=== PATIENT | female | born 1965 | race Caucasian/White ===

== ENCOUNTER 2016-10-28 11:12 | Emergency (ER) | payer OTHER ==
--- NOTE | 2016-10-28 14:09 | DIAGNOSTIC IMAGING REPORT ---
PROCEDURE: ABDOMEN/PELVIS WITH CONTRAST CLINICAL INDICATION: ABDOMINAL PAIN mid abdominal pain, nausea, diarrhea TECHNIQUE: 125 ml of Isovue 300 were injected intravenously and axial images were obtained of the abdomen and pelvis with sagittal and coronal reformations. COMPARISON: None. FINDINGS: ABDOMEN: 9 x 6 by 5 mm calcification in the right renal pelvis with mild parapelvic hyperemia and trace inflammation. Small bilateral renal cortical cysts. No hydronephrosis or other definite intrarenal calcification. Mild enlargement of the pancreatic head without ductal dilatation or significant peripancreatic inflammation. Intact breast implants. Clear lung bases. Normal sized heart. No hiatal hernia. The liver, decompressed gallbladder, adrenal glands, pancreas and spleen are normal. The abdominal aorta is normal in its course and caliber. Trace calcific atherosclerosis. No retroperitoneal adenopathy, suspicious calcifications, or masses. The stomach, upper bowel loops, and mesentery are normal. Intact anterior abdominal wall. No free fluid or inflammation. PELVIS: The appendix and pelvic small bowel loops are normal. Decreased amount of stool in the colon and rectum. Occasional diverticula. No acute diverticulitis. The uterus, ovaries, urinary bladder, and pelvic vessels are normal. No adenopathy, free fluid, or pelvic mass. Mild facet joint degeneration. IMPRESSION: 1. A 9 x 6 x 5 mm right renal pelvis calcification without obstruction. There is mild surrounding inflammation. Correlate with UA. 2. Mild enlargement of the pancreatic head without discrete mass, ductal dilatation, or inflammation. Consider occult pancreatitis. 3. Fairly decompressed colon secondary history of recent diarrhea. No significant pericolonic inflammation. 4. Discussed with Dr. Malone in the emergency room. All CT scans at this facility use dose modulation, iterative reconstruction, and/or weight-based dosing when appropriate to reduce radiation dose to as low as reasonably achievable.
--- NOTE | 2016-10-28 14:38 | ED ORDER SUMMARY ---
..... Patient: CHRISTINA REED OrderSheet [facility] VisitID: [id number] [place] [address] 50y, F Registration Date/Time: 10/28/2016 ORDER SHEET Weight: 65.3 kg (stated) Allergies: No Known Drug Allergy GENERAL ORDERS: UA-Culture if indicated Urgent (11:49 10/28/2016 MWinterer R.N. per protocol) (Ack 11:50 Vivian) (11:51 MWinterer R.N.) Urine Urgent (11:49 10/28/2016 MWinterer R.N. per protocol) (Ack 11:50 Vivian) (11:51 MWinterer R.N.) Cardiac Panel Stat (12:18 10/28/2016 Cedric BLAIR) (Ack 12:19 Vivian) (12:57 MWinterer R.N.) TSH Urgent (12:10/28/2016 Cedric BLAIR) (Ack 12:19 Vivian) (12:57 MWinterer R.N.) Urine Drug Screen Urgent (12:18 10/28/2016 Cedric BLAIR) (Ack 12:19 Vivian) (12:24 MWinterer R.N.) Culture, Stool (also c-diff and parasites including giardia.) Urgent (12:18 10/28/2016 Cedric BLAIR) (Ack 12:20 Vivian) (12:57 MWinterer R.N.) - (stool for leukocytes.) (12:10/28/2016 Cedric BLAIR) (Ack 12:25 Vivian) (12:57 MWinterer R.N.) CT Abd/Pel w Cont (No) (pending) Urgent (12:10/28/2016 Cedric BLAIR) (Ack 12:21 Vivian) (13:39 IJurca R.N.) Amylase Urgent (14:03 10/28/2016 Cedric BLAIR) (Ack 14:04 Vivian) (14:10 ALawrence ER Tech1) Lipase Urgent (14:03 10/28/2016 Cedric BLAIR) (Ack 14:04 Vivian) (14:10 ALawrence ER Tech1) CRP Urgent (14:27 10/28/2016 Cedric BLAIR) (Ack 14:38 Vivian) (14:38 Vivian) MEDICATION ORDERS: IV FLUIDS: IV NS : initial bolus 1000 mL (1000 mL/hr), then 125 mL/hr for 4h (NOW); Routine (12:17 10/28/2016 Cedric BLAIR) (Ack 12:21 MWinterer R.N.) (12:58 IJurca R.N.) Zofran IV 4 mg (NOW) (12:18 10/28/2016 Cedric BLAIR) (Ack 12:22 MWinterer R.N.) (12:56 IJurca R.N.) ORDER SHEET NOTES: [Electronically signed by Mara Mckenzie R.N. (14:55 10/28/2016)] [Electronically signed by Alex Malone MD (22:16 10/31/2016)] [Electronically locked/signed by Mara Mckenzie R.N. (14:55 10/28/2016)]
--- NOTE | 2016-10-28 14:38 | ED CLINICAL REPORT ---
Clinical Report - Physicians/Mid Levels [facility] [address] [place] [address] 10/28/2016 11:14 Patient: CHRISTINA REED Time Seen: 12:06 Oct 28 2016. Arrived- By private vehicle. Historian- patient. CPT: ER phys charges level 4 (#[id number]). HISTORY OF PRESENT ILLNESS Chief Complaint: VOMITING and DIARRHEA. This started last night Has had chronic diarrhea for the past 2 months. Has not had it looked at yet. Last night was a spell of pain and diarrhea that was worse than usual. No blood noted but had a lot of abdominal pain and cramping. Had a colonoscopy 6 months ago that was normal but did not have these symptoms at the time. No F/S/C. No hx of UC or crohns in her or family. and is still present. The patient has had nausea and diarrhea. The illness is described as moderate. (Stool is black but she has been taking peptobismol.). Similar symptoms previously: Chronically. Recent medical care: Not recently seen/assessed. REVIEW OF SYSTEMS No fever, muscle aches, difficulty with urination, dark urine or headache. No dizziness, sore throat, cough, chest pain or difficulty breathing. No excessive urination or jaundice. All systems otherwise negative, except as recorded above. PAST HISTORY Plantar Fasciitis. Hypertension. Nephrolithiasis. ADDITIONAL SURGERIES: Lithotripsy. No history of peptic ulcer. No history of bowel obstruction or gallstones. Medications: None. Allergies: No Known Drug Allergy. SOCIAL HISTORY Never smoker. Alcohol use. History of drug use: marijuana. ADDITIONAL NOTES The nursing notes have been reviewed. PHYSICAL EXAM Vital Signs: 10/28/2016 11:29 BP: 151/78. HR: 109. RR: 18. O2 saturation: 100%. Temp: 97.9 F. Pain level now: 6/10. Appearance: Alert. No acute distress. Eyes: Eyes normal inspection. ENT: Pharynx normal. Neck: Normal inspection. CVS: Normal heart rate and rhythm. Heart sounds normal. Pulses normal. Respiratory: No respiratory distress. Breath sounds normal. Abdomen: Soft. Moderate tenderness in the right side of the abdomen and periumbilical area. Bowel sounds normal. No mass. Back: Normal inspection. No CVA tenderness. Rectal: Rectal exam normal and nontender. Stool heme negative; hemoccult quality assurance technician check passed. (POC test reference range: negative). Skin: Skin warm. Normal skin color. No rash. Extremities: Extremities exhibit normal ROM. No lower extremity edema. Neuro: Oriented X 3. No motor deficit. No sensory deficit. LABS, X-RAYS, AND EKG Abdominal CT: subtle , mildly enlarged pancreatic head. No inflammation. 9 by 6 by 5 renal pelvic stone. No hydronephrosis. Mild hyperemia. Abdominal CT performed with IV contrast. The study was interpreted by the radiologist and discussed with the radiologist. Laboratory Tests: UA-Culture if indicated: (SEVEN: 10/28/2016 11:45) ( [facility] [place] 12:17) Final results Test Result Flag Units (Reference) URINE COLOR YELLOW URINE APPEARANCE CLEAR URINE GLUCOSE NEGATIVE (NEGATIVE) URINE BILIRUBIN NEGATIVE (NEGATIVE) URINE KETONE NEGATIVE (NEGATIVE) URINE SPECIFIC GRAVITY 1.025 (1.010-1.030) URINE PH 6.0 (5.0-8.0) URINE PROTEIN NEGATIVE (NEGATIVE) URINE UROBILINOGEN 0.2 EU/dL (0.2-1.0) URINE NITRITE NEGATIVE (NEGATIVE) URINE BLOOD TRACE-INTACT (NEGATIVE) URINE LEUK ESTERASE NEGATIVE (NEGATIVE) URINE RBC 0-1 rbc/hpf (0-1) URINE WBC 3-5 wbc/hpf (0-1) URINE EPITHELIAL CELLS 3-5 EPI/hpf (0-5) URINE BACTERIA TRACE (<1+) (NONE SEEN) URINE COMMENT CULT NOT INDICATED 2+ [id number] CALCIUM OXALATE CRYSTALS/HPFURINE CULTURES ARE SET-UP BASED ON THE FOLLOWING CRITERIA:POSITIVE NITRITEPOSITIVE LEUKOCYTE ESTERASEGREATER THAN 10 WHITE BLOOD CELLSMODERATE (2+) OR GREATER BACTERIA Urine: (SEVEN: 10/28/2016 11:45) ( [facility] [place] 12:00) Final results Test Result Flag Units (Reference) URINE NEGATIVE CBC w Diff: (SEVEN: 10/28/2016 12:54) ( MsgRcvd 10/28/2016 13:05) Final results Test Result Flag Units (Reference) WHITE BLOOD COUNT 7.8 K/uL (4.5-11.5) RED BLOOD COUNT 4.90 M/uL (4.00-5.20) HEMOGLOBIN 14.9 gm/dL (12.0-16.0) HEMATOCRIT 43.3 % (36.0-46.0) MEAN CELL VOLUME 88 fL (80-100) MEAN CORPUSCULAR HGB 30 pg (26-34) MEAN CORPUSCULAR HGB CONC 34 g/dL (31-37) RED CELL DISTRIBUTION WIDTH 12.5 % (11.6-14.8) PLATELET COUNT 386 K/uL (150-400) NEUTROPHIL % 70.1 % (50-75) LYMPH % 21.4 L % (25-40) MONO % 6.6 % (3-14) EOSINOPHIL % 1.6 % (0-4) BASOPHIL % 0.3 % (0-2) Urine Drug Screen: (SEVEN: 10/28/2016 12:18) ( MsgRcvd 10/28/2016 12:57) Final results Test Result Flag Units (Reference) AMPHETAMINE/METHAMPHETAMINE NEGATIVE (NEGATIVE) BARBITURATE NEGATIVE (NEGATIVE) BENZODIAZEPINE NEGATIVE (NEGATIVE) CANNABINOID NEGATIVE (NEGATIVE) COCAINE NEGATIVE (NEGATIVE) ECSTASY NEGATIVE (NEGATIVE) METHADONE NEGATIVE (NEGATIVE) OPIATE NEGATIVE (NEGATIVE) The urine drug screen is a qualitative screening test fordrug overdose and abuse. All screen results should beconsidered as presumptive.Drugs screened for are as follows:BenzodiazepinesCocaineAmphetamines/MetamphetaminesTHC (Tetrahydrocannabinol)OpiatesBarbituratesEcstasyMethadonePositive results are unconfirmed. For confirmation, notifythe lab for the specimen to be sent to the reference lab.All confirmations must be performed by a differentmethodology.The ingestion of natural herbal and plant productscontaining Ephedra/Ephedra metabolites can produce in urineone or more substances capable of cross reacting withamphetamine/methamphetamine immunoassays. These testsprovide a preliminary result only. A more specificalternative chemical method must be used to obtain aconfirmed analytical result. CHEM 13 PANEL: (SEVEN: 10/28/2016 12:54) ( MsgRcvd 10/28/2016 13:29) Final results Test Result Flag Units (Reference) GLUCOSE 104 mg/dL (70-110) BUN 26 H mg/dL (7-18) CREATININE 0.6 mg/dL (0.6-1.3) Estimated GFR >60 mL/min Estimated GFR- >60 mL/min Note: Persistent reduction over 3 months in eGFR<60 mL/min/1.73 m2 defines CKD. Patients with eGFR values>=60 mL/min/1.73 m2 may also have CKD if evidence ofpersistent proteinuria. Additional information may be foundat www.kidney.org. SODIUM 143 mmol/L (136-145) POTASSIUM 3.7 mmol/L (3.5-5.1) CHLORIDE 106 mmol/L (98-107) CARBON DIOXIDE 28 mmol/L (21-32) CALCIUM 8.9 mg/dL (8.5-10.1) TOTAL PROTEIN 7.9 g/dL (6.4-8.2) ALBUMIN 4.3 g/dL (3.3-5.0) BILIRUBIN, TOTAL 0.3 mg/dL (0.0-1.0) ALKALINE PHOSPHATASE 74 U/L (46-116) AST (SGOT) 20 U/L (15-37) ALT (SGPT) 40 U/L (12-78) CPK 134 U/L (24-260) MAGNESIUM 2.1 mg/dL (1.8-2.4) TROPONIN I <0.05 L ng/mL (0.00-1.5) TROPONIN REFERENCE RANGE:<0.1 NEGATIVE0.1-1.5 INDETERMINANT>1.5 POSITIVE THYROID STIMULATING HORMONE 0.519 uIU/mL (0.34-3.74) . PROGRESS AND PROCEDURES Course of Care: IV NS Zofran 4 mg IV Patient is stable. Symptoms much better. Patient/family counseled. Disposition: Discharged. Condition: stable and improved. CLINICAL IMPRESSION Chronic diarrhea of unclear etiology Pancreatic head enlargement Kidney stone. INSTRUCTIONS Drink plenty of fluids. Warnings: Further evaluation is necessary. Prescription Medications: Zofran (orally disintegrating tablets) 4 mg: take 1 orally every 6 hours as needed for nausea. Dispense ten (10). No refill. Bentyl 20 mg tablets: take 1 orally every 6 hours as needed. Dispense thirty (30). No refills. Substitution is permissible. Follow-up: Follow up with your doctor in one week. Call for an appointment. Follow up with a repeat chief in one week. Call for an appointment. Understanding of the discharge instructions verbalized by patient. (Electronically signed by Alex Malone MD 10/31/2016 22:16)
--- NOTE | 2016-10-28 14:38 | ED NURSING NOTES ---
Clinical Report - Nurses [facility] [place] [address] 10/28/2016 11:14 Patient: CHRISTINA REED TRIAGE Acuity: LEVEL 3. Chief Complaint: NAUSEA and DIARRHEA. Alert. No acute distress. SEPSIS SCREEN: Sepsis Screen. Negative (no infection suspected/documented). --11:34 Mara Mckenzie R.N. 11:29 10/28/16. BP: 151/78. HR: 109. RR: 18. O2 saturation: 100% on room air. Temp: 97.9 F (oral). Pain level now: 09/21. --11:34 Mara Mckenzie R.N. Weight: 65.3 kg stated. Height/Length: 62 inches Per Patient. BMI: 26.4. --11:32 Mara Mckenzie R.N. Medications None. --11:30 Mara Mckenzie R.N. Medication/allergy information source: the patient. --11:34 Mara Mckenzie R.N. Allergies No Known Drug Allergy. --11:31 Mara Mckenzie R.N. History Arrived by private vehicle, and unaccompanied. Primary physician (none). This started last night. Describes the quality as cramping. Relates location as generalized across abdomen. Reports last BM was today. Last oral intake by patient was this morning. 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 PAST MEDICAL HX: The patient is post-menopausal. SOCIAL HX: Never smoker. Occasional alcohol use. History of occasional drug use: marijuana. FALL RISK ASSESSMENT: Fall risk assessment completed. No fall risk identified. NUTRITIONAL RISK ASSESSMENT: The nutritional risk assessment revealed no deficiencies. FUNCTIONAL ASSESSMENT: Functional assessment: no impairments noted. LEARNING NEEDS ASSESSMENT: The learning needs assessment revealed no barriers. SKIN INTEGRITY ASSESSMENT: Skin integrity risk assessment completed. No skin integrity risk identified. --11:34 Mara Mckenzie R.N. PROBLEMS: Plantar Fasciitis. Hypertension. Nephrolithiasis. --11:32 Mara Mckenzie R.N. ADDITIONAL SURGERIES: Lithotripsy. --11:32 Mara Mckenzie R.N. Assessment GENERAL / NEURO / PSYCH: Alert. Oriented X 4. Appears in no acute distress. Luz Maria Coma Scale: 15- eyes open spontaneously (4); best verbal response- oriented x 4 (5); best motor response- obeys commands (6). Patient appears calm and cooperative. RESPIRATORY: Respirations not labored. CVS: Capillary refill less than 2 seconds. GI / : Abdomen soft. SKIN: Mucous membranes are pink. Skin is warm and dry. --11:34 Mara Mckenzie R.N. Interventions ID band on patient. To treatment room. --11:34 Mara Mckenzie R.N. PHYSICAL ASSESSMENT 11:35 10/28/16. Ambulatory to room. Patient gowned. GENERAL / NEURO / PSYCH: Alert. Oriented X 4. Appears in no acute distress. HEENT: Mucous membranes are pink. RESPIRATORY: Respirations not labored. CVS: Capillary refill less than 2 seconds. GI / : Abdomen soft and nontender. SKIN: Skin is warm and dry. --11:35 Mara Mckenzie R.N. NURSING PROGRESS NOTES 11:35 10/28/16. Patient gowned. Reassurance given. Two patient identifiers checked. Call light placed in reach. Bed placed in lowest position. Brakes of bed on. Patient ready for evaluation- chart flagged and ED physician notified. --11:35 Mara Mckenzie R.N. 12:46 10/28/2016 Site #1 started via IV in the right wrist with an 20g angiocath, with aseptic technique and good blood return; two attempts. Blood drawn: rainbow set. Labeled in the presence of the patient and sent to the lab. Saline lock flushed with saline. --12:56 Jersey Perez R.N. 12:51 10/28/2016 Zofran (Ondansetron HCl) IVP 4 mg given over 2 minute(s) via site #1. Allergies verified and confirmed 5 rights. IV patency established. IV site checked: no pain, redness, or swelling. IV flushed thoroughly pre- and post-medication administration. IVP given by RN. --12:56 Jersey Perez R.N. 12:51 10/28/2016 Started bag #1 1000 mL IV Fluids IV NS (Saline); bolus of 1000 mL over 1 hour(s) then at 125 mL/hr over 4 hour(s) via site #1 via IV pump. Allergies verified and confirmed 5 rights. IV patency established. IV site checked: no pain, redness, or swelling. IV flushed thoroughly pre- and post-medication administration. --12:58 Jersey Perez R.N. 13:20 10/28/2016 Zofran IVP Response: no adverse reaction symptoms have improved the patient feels better. (Nausea resolved, now absent.). --13:25 Jersey Perez R.N. 13:28 10/28/16. Patient transported to [place] by stretcher with [employer]. --13:28 Mara Mckenzie R.N. 14:35 10/28/16. Global Sales Director provided for the rectal exam by the physician. --14:35 Mara Mckenzie R.N. 14:35 10/28/16. BP: 135/72. HR: 96. RR: 18. O2 saturation: 99% on room air. --14:36 Mara Mckenzie R.N. DISPOSITION / DISCHARGE Departure time: 14:50 Oct 28 2016. Condition at departure: improved and stable. No learning barriers present. Discharge instructions provided and reviewed with the patient. Reviewed medication(s) side effects, precautions, dosing and course information. Prescription(s) given to the patient. Patient verbalized understanding. Written instructions provided in [place]. The patient was discharged by the physician. She was discharged home and accompanied by corporate investigator. She left the Emergency Department ambulatory and via private vehicle. Patient driving. --14:54 Mara Mckenzie R.N. 14:49 10/28/2016 Site #1 removed upon discharge. Catheter intact. Manual pressure and bandage applied. --14:54 Mara Mckenzie R.N. Locked/Released at 10/28/2016 14:55 by Mara Mckenzie R.N.
--- NOTE | 2016-10-28 14:38 | ED CLINICAL REPORT ---
Clinical Report - Physicians/Mid Levels [facility] [address] [place] [address] 10/28/2016 11:14 Patient: CHRISTINA REED Time Seen: 12:06 Oct 28 2016. Arrived- By private vehicle. Historian- patient. CPT: ER phys charges level 4 (#[id number]). HISTORY OF PRESENT ILLNESS Chief Complaint: VOMITING and DIARRHEA. This started last night Has had chronic diarrhea for the past 2 months. Has not had it looked at yet. Last night was a spell of pain and diarrhea that was worse than usual. No blood noted but had a lot of abdominal pain and cramping. Had a colonoscopy 6 months ago that was normal but did not have these symptoms at the time. No F/S/C. No hx of UC or crohns in her or family. and is still present. The patient has had nausea and diarrhea. The illness is described as moderate. (Stool is black but she has been taking peptobismol.). Similar symptoms previously: Chronically. Recent medical care: Not recently seen/assessed. REVIEW OF SYSTEMS No fever, muscle aches, difficulty with urination, dark urine or headache. No dizziness, sore throat, cough, chest pain or difficulty breathing. No excessive urination or jaundice. All systems otherwise negative, except as recorded above. PAST HISTORY Plantar Fasciitis. Hypertension. Nephrolithiasis. ADDITIONAL SURGERIES: Lithotripsy. No history of peptic ulcer. No history of bowel obstruction or gallstones. Medications: None. Allergies: No Known Drug Allergy. SOCIAL HISTORY Never smoker. Alcohol use. History of drug use: marijuana. ADDITIONAL NOTES The nursing notes have been reviewed. PHYSICAL EXAM Vital Signs: 10/28/2016 11:29 BP: 151/78. HR: 109. RR: 18. O2 saturation: 100%. Temp: 97.9 F. Pain level now: 6/10. Appearance: Alert. No acute distress. Eyes: Eyes normal inspection. ENT: Pharynx normal. Neck: Normal inspection. CVS: Normal heart rate and rhythm. Heart sounds normal. Pulses normal. Respiratory: No respiratory distress. Breath sounds normal. Abdomen: Soft. Moderate tenderness in the right side of the abdomen and periumbilical area. Bowel sounds normal. No mass. Back: Normal inspection. No CVA tenderness. Rectal: Rectal exam normal and nontender. Stool heme negative; hemoccult quality control associate check passed. (POC test reference range: negative). Skin: Skin warm. Normal skin color. No rash. Extremities: Extremities exhibit normal ROM. No lower extremity edema. Neuro: Oriented X 3. No motor deficit. No sensory deficit. LABS, X-RAYS, AND EKG Abdominal CT: subtle , mildly enlarged pancreatic head. No inflammation. 9 by 6 by 5 renal pelvic stone. No hydronephrosis. Mild hyperemia. Abdominal CT performed with IV contrast. The study was interpreted by the radiologist and discussed with the radiologist. Laboratory Tests: UA-Culture if indicated: (SEVEN: 10/28/2016 11:45) ( [facility] 10/28/2016 12:17) Final results Test Result Flag Units (Reference) URINE COLOR YELLOW URINE APPEARANCE CLEAR URINE GLUCOSE NEGATIVE (NEGATIVE) URINE BILIRUBIN NEGATIVE (NEGATIVE) URINE KETONE NEGATIVE (NEGATIVE) URINE SPECIFIC GRAVITY 1.025 (1.010-1.030) URINE PH 6.0 (5.0-8.0) URINE PROTEIN NEGATIVE (NEGATIVE) URINE UROBILINOGEN 0.2 EU/dL (0.2-1.0) URINE NITRITE NEGATIVE (NEGATIVE) URINE BLOOD TRACE-INTACT (NEGATIVE) URINE LEUK ESTERASE NEGATIVE (NEGATIVE) URINE RBC 0-1 rbc/hpf (0-1) URINE WBC 3-5 wbc/hpf (0-1) URINE EPITHELIAL CELLS 3-5 EPI/hpf (0-5) URINE BACTERIA TRACE (<1+) (NONE SEEN) URINE COMMENT CULT NOT INDICATED 2+ [id number] CALCIUM OXALATE CRYSTALS/HPFURINE CULTURES ARE SET-UP BASED ON THE FOLLOWING CRITERIA:POSITIVE NITRITEPOSITIVE LEUKOCYTE ESTERASEGREATER THAN 10 WHITE BLOOD CELLSMODERATE (2+) OR GREATER BACTERIA Urine: (SEVEN: 10/28/2016 11:45) ( [facility] 10/28/2016 12:00) Final results Test Result Flag Units (Reference) URINE NEGATIVE CBC w Diff: (SEVEN: 10/28/2016 12:54) ( MsgRcvd 10/28/2016 13:05) Final results Test Result Flag Units (Reference) WHITE BLOOD COUNT 7.8 K/uL (4.5-11.5) RED BLOOD COUNT 4.90 M/uL (4.00-5.20) HEMOGLOBIN 14.9 gm/dL (12.0-16.0) HEMATOCRIT 43.3 % (36.0-46.0) MEAN CELL VOLUME 88 fL (80-100) MEAN CORPUSCULAR HGB 30 pg (26-34) MEAN CORPUSCULAR HGB CONC 34 g/dL (31-37) RED CELL DISTRIBUTION WIDTH 12.5 % (11.6-14.8) PLATELET COUNT 386 K/uL (150-400) NEUTROPHIL % 70.1 % (50-75) LYMPH % 21.4 L % (25-40) MONO % 6.6 % (3-14) EOSINOPHIL % 1.6 % (0-4) BASOPHIL % 0.3 % (0-2) Urine Drug Screen: (SEVEN: 10/28/2016 12:18) ( MsgRcvd 10/28/2016 12:57) Final results Test Result Flag Units (Reference) AMPHETAMINE/METHAMPHETAMINE NEGATIVE (NEGATIVE) BARBITURATE NEGATIVE (NEGATIVE) BENZODIAZEPINE NEGATIVE (NEGATIVE) CANNABINOID NEGATIVE (NEGATIVE) COCAINE NEGATIVE (NEGATIVE) ECSTASY NEGATIVE (NEGATIVE) METHADONE NEGATIVE (NEGATIVE) OPIATE NEGATIVE (NEGATIVE) The urine drug screen is a qualitative screening test fordrug overdose and abuse. All screen results should beconsidered as presumptive.Drugs screened for are as follows:BenzodiazepinesCocaineAmphetamines/MetamphetaminesTHC (Tetrahydrocannabinol)OpiatesBarbituratesEcstasyMethadonePositive results are unconfirmed. For confirmation, notifythe lab for the specimen to be sent to the reference lab.All confirmations must be performed by a differentmethodology.The ingestion of natural herbal and plant productscontaining Ephedra/Ephedra metabolites can produce in urineone or more substances capable of cross reacting withamphetamine/methamphetamine immunoassays. These testsprovide a preliminary result only. A more specificalternative chemical method must be used to obtain aconfirmed analytical result. CHEM 13 PANEL: (SEVEN: 10/28/2016 12:54) ( MsgRcvd 10/28/2016 13:29) Final results Test Result Flag Units (Reference) GLUCOSE 104 mg/dL (70-110) BUN 26 H mg/dL (7-18) CREATININE 0.6 mg/dL (0.6-1.3) Estimated GFR >60 mL/min Estimated GFR- >60 mL/min Note: Persistent reduction over 3 months in eGFR<60 mL/min/1.73 m2 defines CKD. Patients with eGFR values>=60 mL/min/1.73 m2 may also have CKD if evidence ofpersistent proteinuria. Additional information may be foundat www.[email or web address].org. SODIUM 143 mmol/L (136-145) POTASSIUM 3.7 mmol/L (3.5-5.1) CHLORIDE 106 mmol/L (98-107) CARBON DIOXIDE 28 mmol/L (21-32) CALCIUM 8.9 mg/dL (8.5-10.1) TOTAL PROTEIN 7.9 g/dL (6.4-8.2) ALBUMIN 4.3 g/dL (3.3-5.0) BILIRUBIN, TOTAL 0.3 mg/dL (0.0-1.0) ALKALINE PHOSPHATASE 74 U/L (46-116) AST (SGOT) 20 U/L (15-37) ALT (SGPT) 40 U/L (12-78) CPK 134 U/L (24-260) MAGNESIUM 2.1 mg/dL (1.8-2.4) TROPONIN I <0.05 L ng/mL (0.00-1.5) TROPONIN REFERENCE RANGE:<0.1 NEGATIVE0.1-1.5 INDETERMINANT>1.5 POSITIVE THYROID STIMULATING HORMONE 0.519 uIU/mL (0.34-3.74) . PROGRESS AND PROCEDURES Course of Care: IV NS Zofran 4 mg IV Patient is stable. Symptoms much better. Patient/family counseled. Disposition: Discharged. Condition: stable and improved. CLINICAL IMPRESSION Chronic diarrhea of unclear etiology Pancreatic head enlargement Kidney stone. INSTRUCTIONS Drink plenty of fluids. Warnings: Further evaluation is necessary. Prescription Medications: Zofran (orally disintegrating tablets) 4 mg: take 1 orally every 6 hours as needed for nausea. Dispense ten (10). No refill. Bentyl 20 mg tablets: take 1 orally every 6 hours as needed. Dispense thirty (30). No refills. Substitution is permissible. Follow-up: Follow up with your doctor in one week. Call for an appointment. Follow up with a produce clerk in one week. Call for an appointment. Understanding of the discharge instructions verbalized by patient. (Electronically signed by Alex Malone MD 10/31/2016 22:16)
--- NOTE | 2016-10-28 14:38 | ED NURSING NOTES ---
Clinical Report - Nurses [facility] [place] [address] 10/28/2016 11:14 Patient: CHRISTINA REED TRIAGE Acuity: LEVEL 3. Chief Complaint: NAUSEA and DIARRHEA. Alert. No acute distress. SEPSIS SCREEN: Sepsis Screen. Negative (no infection suspected/documented). --11:34 Mara Mckenzie R.N. 11:29 10/28/16. BP: 151/78. HR: 109. RR: 18. O2 saturation: 100% on room air. Temp: 97.9 F (oral). Pain level now: 09/21. --11:34 Mara Mckenzie R.N. Weight: 65.3 kg stated. Height/Length: 62 inches Per Patient. BMI: 26.4. --11:32 Mara Mckenzie R.N. Medications None. --11:30 Mara Mckenzie R.N. Medication/allergy information source: the patient. --11:34 Mara Mckenzie R.N. Allergies No Known Drug Allergy. --11:31 Mara Mckenzie R.N. History Arrived by private vehicle, and unaccompanied. Primary physician (none). This started last night. Describes the quality as cramping. Relates location as generalized across abdomen. Reports last BM was today. Last oral intake by patient was this morning. Treatment INNERSOLE FITTER: None. PAST MEDICAL HX: The patient is post-menopausal. SOCIAL HX: Never smoker. Occasional alcohol use. History of occasional drug use: marijuana. FALL RISK ASSESSMENT: Fall risk assessment completed. No fall risk identified. NUTRITIONAL RISK ASSESSMENT: The nutritional risk assessment revealed no deficiencies. FUNCTIONAL ASSESSMENT: Functional assessment: no impairments noted. LEARNING NEEDS ASSESSMENT: The learning needs assessment revealed no barriers. SKIN INTEGRITY ASSESSMENT: Skin integrity risk assessment completed. No skin integrity risk identified. --11:34 Mara Mckenzie R.N. PROBLEMS: Plantar Fasciitis. Hypertension. Nephrolithiasis. --11:32 Mara Mckenzie R.N. ADDITIONAL SURGERIES: Lithotripsy. --11:32 Mara Mckenzie R.N. Assessment GENERAL / NEURO / PSYCH: Alert. Oriented X 4. Appears in no acute distress. Luz Maria Coma Scale: 15- eyes open spontaneously (4); best verbal response- oriented x 4 (5); best motor response- obeys commands (6). Patient appears calm and cooperative. RESPIRATORY: Respirations not labored. CVS: Capillary refill less than 2 seconds. GI / : Abdomen soft. SKIN: Mucous membranes are pink. Skin is warm and dry. --11:34 Mara Mckenzie R.N. Interventions ID band on patient. To treatment room. --11:34 Mara Mckenzie R.N. PHYSICAL ASSESSMENT 11:35 10/28/16. Ambulatory to room. Patient gowned. GENERAL / NEURO / PSYCH: Alert. Oriented X 4. Appears in no acute distress. HEENT: Mucous membranes are pink. RESPIRATORY: Respirations not labored. CVS: Capillary refill less than 2 seconds. GI / : Abdomen soft and nontender. SKIN: Skin is warm and dry. --11:35 Mara Mckenzie R.N. NURSING PROGRESS NOTES 11:35 10/28/16. Patient gowned. Reassurance given. Two patient identifiers checked. Call light placed in reach. Bed placed in lowest position. Brakes of bed on. Patient ready for evaluation- chart flagged and ED physician notified. --11:35 Mara Mckenzie R.N. 12:46 10/28/2016 Site #1 started via IV in the right wrist with an 20g angiocath, with aseptic technique and good blood return; two attempts. Blood drawn: rainbow set. Labeled in the presence of the patient and sent to the lab. Saline lock flushed with saline. --12:56 Jersey Perez R.N. 12:51 10/28/2016 Zofran (Ondansetron HCl) IVP 4 mg given over 2 minute(s) via site #1. Allergies verified and confirmed 5 rights. IV patency established. IV site checked: no pain, redness, or swelling. IV flushed thoroughly pre- and post-medication administration. IVP given by RN. --12:56 Jersey Perez R.N. 12:51 10/28/2016 Started bag #1 1000 mL IV Fluids IV NS (Saline); bolus of 1000 mL over 1 hour(s) then at 125 mL/hr over 4 hour(s) via site #1 via IV pump. Allergies verified and confirmed 5 rights. IV patency established. IV site checked: no pain, redness, or swelling. IV flushed thoroughly pre- and post-medication administration. --12:58 Jersey Perez R.N. 13:20 10/28/2016 Zofran IVP Response: no adverse reaction symptoms have improved the patient feels better. (Nausea resolved, now absent.). --13:25 Jersey Perez R.N. 13:28 10/28/16. Patient transported to MD by stretcher with COINTER[employer]. --13:28 Mara Mckenzie R.N. 14:35 10/28/16. Fagot Maker provided for the rectal exam by the physician. --14:35 Mara Mckenzie R.N. 14:35 10/28/16. BP: 135/72. HR: 96. RR: 18. O2 saturation: 99% on room air. --14:36 Mara Mckenzie R.N. DISPOSITION / DISCHARGE Departure time: 14:50 Oct 28 2016. Condition at departure: improved and stable. No learning barriers present. Discharge instructions provided and reviewed with the patient. Reviewed medication(s) side effects, precautions, dosing and course information. Prescription(s) given to the patient. Patient verbalized understanding. Written instructions provided in German. The patient was discharged by the physician. She was discharged home and accompanied by driver starting gate. She left the Emergency Department ambulatory and via private vehicle. Patient driving. --14:54 Mara Mckenzie R.N. 14:49 10/28/2016 Site #1 removed upon discharge. Catheter intact. Manual pressure and bandage applied. --14:54 Mara Mckenzie R.N. Locked/Released at 10/28/2016 14:55 by Mara Mckenzie R.N.
--- NOTE | 2016-10-28 14:38 | ED ORDER SUMMARY ---
..... Patient: CHRISTINA REED OrderSheet [facility] VisitID: [id number] [place] [address] 50y, F Registration Date/Time: 10/28/2016 ORDER SHEET Weight: 65.3 kg (stated) Allergies: No Known Drug Allergy GENERAL ORDERS: UA-Culture if indicated Urgent (11:49 10/28/2016 MWinterer R.N. per protocol) (Ack 11:50 Vivian) (11:51 MWinterer R.N.) Urine Urgent (11:49 10/28/2016 MWinterer R.N. per protocol) (Ack 11:50 Vivian) (11:51 MWinterer R.N.) Cardiac Panel Stat (12:18 10/28/2016 Cedric BLAIR) (Ack 12:19 Vivian) (12:57 MWinterer R.N.) TSH Urgent (12:10/28/2016 Cedric BLAIR) (Ack 12:19 Vivian) (12:57 MWinterer R.N.) Urine Drug Screen Urgent (12:18 10/28/2016 Cedric BLAIR) (Ack 12:19 Vivian) (12:24 MWinterer R.N.) Culture, Stool (also c-diff and parasites including giardia.) Urgent (12:18 10/28/2016 Cedric BLAIR) (Ack 12:20 Vivian) (12:57 MWinterer R.N.) - (stool for leukocytes.) (12:10/28/2016 Cedric BLAIR) (Ack 12:25 Vivian) (12:57 MWinterer R.N.) CT Abd/Pel w Cont (No) (pending) Urgent (12:10/28/2016 Cedric BLAIR) (Ack 12:21 Vivian) (13:39 IJurca R.N.) Amylase Urgent (14:03 10/28/2016 Cedric BLAIR) (Ack 14:04 Vivian) (14:10 ALawrence ER Tech1) Lipase Urgent (14:03 10/28/2016 Cedric BLAIR) (Ack 14:04 Vivian) (14:10 ALawrence ER Tech1) CRP Urgent (14:27 10/28/2016 Cedric BLAIR) (Ack 14:38 Vivian) (14:38 Vivian) MEDICATION ORDERS: IV FLUIDS: IV NS : initial bolus 1000 mL (1000 mL/hr), then 125 mL/hr for 4h (NOW); Routine (12:17 10/28/2016 Cedric BLAIR) (Ack 12:21 MWinterer R.N.) (12:58 IJurca R.N.) Zofran IV 4 mg (NOW) (12:18 10/28/2016 Cedric BLAIR) (Ack 12:22 MWinterer R.N.) (12:56 IJurca R.N.) ORDER SHEET NOTES: [Electronically signed by Mara Mckenzie R.N. (14:55 10/28/2016)] [Electronically signed by Alex Malone MD (22:16 10/31/2016)] [Electronically locked/signed by Mara Mckenzie R.N. (14:55 10/28/2016)]
--- NOTE | 2016-10-31 22:16 | ED MAR SUMMARY ---
..... Medication Administration Record [facility] [address] [place] [address] Patient: CHRISTINA REED Visit ID: [id number] 50y, F Weight: 65.3 kg Height/Length: 62 in BMI: 26.4 ALLERGIES: No Known Drug Allergy Start 12:51 10/28/2016 Jersey Perez RTiago Medication Administered: IV NS (SALINE), Dose: IV Fluids over 4 hour(s), Rate: 125 mL/hr, Bolus: 1000 mL over 1 hour(s), Dispensed: 1000 mL bag, Site: #1 right wrist. Medication Ordered: IV NS : initial bolus 1000 mL (1000 mL/hr), then 125 mL/hr for 4h (NOW); Routine. Given 12:51 10/28/2016 Jersey Perez, RTrenaNTrena Medication Administered: ZOFRAN [IVP] (ONDANSETRON HCL), Dose: 4 mg IVP over 2 minute(s), Site: #1 right wrist. Medication Ordered: Zofran IV 4 mg (NOW).
--- NOTE | 2016-10-31 22:16 | ED MED RECONCILIATION SUMMARY ---
Patient: CHRISTINA REED Medication Reconciliation Report [facility] VisitID: [id number] [address] [place] [address] 50y, F Registration Date/Time: 10/28/2016 Weight: 65.3 kg Height/Length: 62 in. BMI: 26.4 ALLERGIES: No Known Drug Allergy The patient's Home Medications are listed below: NONE. The source(s) of the original Home Medication information: patient The following Medications were given to the patient in the Emergency Department: Zofran [IVP] IVP 4 mg, administered: 10/28/2016 12:51:00 PM IV NS IV Fluids bolus 1000 mL over 1 hour(s), then 125 mL/hr, administered: 10/28/2016 12:51:00 PM The following Medications were prescribed to the patient: Zofran (orally disintegrating tablets) 4 mg: take 1 orally every 6 hours as needed for nausea. Dispense ten (10). No refill. -- Alex Malone MD Bentyl 20 mg tablets: take 1 orally every 6 hours as needed. Dispense thirty (30). No refills. Substitution is permissible. -- Alex Malone MD
--- NOTE | 2016-10-31 22:16 | ED MAR SUMMARY ---
..... Medication Administration Record [facility] [address] [place] [address] Patient: CHRISTINA REED Visit ID: [id number] 50y, F Weight: 65.3 kg Height/Length: 62 in BMI: 26.4 ALLERGIES: No Known Drug Allergy Start 12:51 10/28/2016 Jersey Perez RTiago Medication Administered: IV NS (SALINE), Dose: IV Fluids over 4 hour(s), Rate: 125 mL/hr, Bolus: 1000 mL over 1 hour(s), Dispensed: 1000 mL bag, Site: #1 right wrist. Medication Ordered: IV NS : initial bolus 1000 mL (1000 mL/hr), then 125 mL/hr for 4h (NOW); Routine. Given 12:51 10/28/2016 Jersey Perez, RTrenaNTrena Medication Administered: ZOFRAN [IVP] (ONDANSETRON HCL), Dose: 4 mg IVP over 2 minute(s), Site: #1 right wrist. Medication Ordered: Zofran IV 4 mg (NOW).
--- NOTE | 2016-10-31 22:16 | ED DISCHARGE INSTRUCTIONS ---
Patient: CHRISTINA REED General Instructions [facility] VisitID: [id number] [place] [address] 50y, F Registration Date/Time: 10/28/2016 Chronic diarrhea of unclear etiology Pancreatic head enlargement Kidney stone. INSTRUCTIONS Drink plenty of fluids. Warnings: Further evaluation is necessary. Prescription Medications: Zofran (orally disintegrating tablets) 4 mg: take 1 orally every 6 hours as needed for nausea. Dispense ten (10). No refill. Bentyl 20 mg tablets: take 1 orally every 6 hours as needed. Dispense thirty (30). No refills. Substitution is permissible. Follow-up: Follow up with your doctor in one week. Call for an appointment. Follow up with a channel development director in one week. Call for an appointment. Understanding of the discharge instructions verbalized by patient. ADDITIONAL INFORMATION Ondansetron Oral disintegrating tablet What is this medicine? ONDANSETRON (on AR se kelsie) is used to treat nausea and vomiting caused by chemotherapy. It is also used to prevent or treat nausea and vomiting after surgery. How should I use this medicine? These tablets are made to dissolve in the mouth. Do not try to push the tablet through the foil backing. With dry hands, peel away the foil backing and gently remove the tablet. Place the tablet in the mouth and allow it to dissolve, then swallow. While you may take these tablets with water, it is not necessary to do so. Talk to your poly packer and heat sealer regarding the use of this medicine in children. Special care may be needed. What side effects may I notice from receiving this medicine? Side effects that you should report to your doctor or health skin care therapist as soon as possible: allergic reactions like skin rash, itching or hives, swelling of the face, lips, or tongue breathing problems dizziness fast or irregular heartbeat feeling faint or lightheaded, falls fever and chills swelling of the hands and feet tightness in the chest Side effects that usually do not require medical attention (report to your doctor or health skin care therapist if they continue or are bothersome): constipation or diarrhea headache What may interact with this medicine? Do not take this medicine with any of the following medications: -apomorphine -cisapride -dofetilide -dronedarone -pimozide -thioridazine -ziprasidone This medicine may also interact with the following medications: -carbamazepine -phenytoin -rifampicin -tramadol -other medicines that prolong the QT interval (cause an abnormal heart rhythm) What if I miss a dose? If you miss a dose, take it as soon as you can. If it is almost time for your next dose, take only that dose. Do not take double or extra doses. Where should I keep my medicine? Keep out of the reach of children. Store between 2 and 30 degrees C (36 and 86 degrees F). Throw away any unused medicine after the expiration date. What should I tell my health care provider before I take this medicine? They need to know if you have any of these conditions: heart disease history of irregular heartbeat liver disease low levels of magnesium or potassium in the blood an unusual or allergic reaction to ondansetron, granisetron, other medicines, foods, dyes, or preservatives or trying to get breast-feeding What should I watch for while using this medicine? Check with your doctor or health skin care therapist as soon as you can if you have any sign of an allergic reaction. You have been given the following additional information: Ondansetron Oral disintegrating tablet (Electronically signed by Alex Malone MD 10/31/2016 22:16)
--- NOTE | 2016-10-31 22:16 | ED DISCHARGE INSTRUCTIONS ---
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 INSTRUCTIONS Drink plenty of fluids. Warnings: Further evaluation is necessary. Prescription Medications: Zofran (orally disintegrating tablets) 4 mg: take 1 orally every 6 hours as needed for nausea. Dispense ten (10). No refill. Bentyl 20 mg tablets: take 1 orally every 6 hours as needed. Dispense thirty (30). No refills. Substitution is permissible. Follow-up: Follow up with your doctor in one week. Call for an appointment. Follow up with a scrap shear operator in one week. Call for an appointment. Understanding of the discharge instructions verbalized by patient. ADDITIONAL INFORMATION Ondansetron Oral disintegrating tablet What is this medicine? ONDANSETRON (on AR se kelsie) is used to treat nausea and vomiting caused by chemotherapy. It is also used to prevent or treat nausea and vomiting after surgery. How should I use this medicine? These tablets are made to dissolve in the mouth. Do not try to push the tablet through the foil backing. With dry hands, peel away the foil backing and gently remove the tablet. Place the tablet in the mouth and allow it to dissolve, then swallow. While you may take these tablets with water, it is not necessary to do so. Talk to your broke beater machine operator regarding the use of this medicine in children. Special care may be needed. What side effects may I notice from receiving this medicine? Side effects that you should report to your doctor or health nurse behavioral health care as soon as possible: allergic reactions like skin rash, itching or hives, swelling of the face, lips, or tongue breathing problems dizziness fast or irregular heartbeat feeling faint or lightheaded, falls fever and chills swelling of the hands and feet tightness in the chest Side effects that usually do not require medical attention (report to your doctor or health nurse behavioral health care if they continue or are bothersome): constipation or diarrhea headache What may interact with this medicine? Do not take this medicine with any of the following medications: -apomorphine -cisapride -dofetilide -dronedarone -pimozide -thioridazine -ziprasidone This medicine may also interact with the following medications: -carbamazepine -phenytoin -rifampicin -tramadol -other medicines that prolong the QT interval (cause an abnormal heart rhythm) What if I miss a dose? If you miss a dose, take it as soon as you can. If it is almost time for your next dose, take only that dose. Do not take double or extra doses. Where should I keep my medicine? Keep out of the reach of children. Store between 2 and 30 degrees C (36 and 86 degrees F). Throw away any unused medicine after the expiration date. What should I tell my health care provider before I take this medicine? They need to know if you have any of these conditions: heart disease history of irregular heartbeat liver disease low levels of magnesium or potassium in the blood an unusual or allergic reaction to ondansetron, granisetron, other medicines, foods, dyes, or preservatives or trying to get breast-feeding What should I watch for while using this medicine? Check with your doctor or health nurse behavioral health care as soon as you can if you have any sign of an allergic reaction. You have been given the following additional information: Ondansetron Oral disintegrating tablet (Electronically signed by Alex Malone MD 10/31/2016 22:16)
--- NOTE | 2016-10-31 22:16 | ED MED RECONCILIATION SUMMARY ---
Patient: CHRISTINA REED Medication Reconciliation Report [facility] VisitID: [id number] [address] [place] [address] 50y, F Registration Date/Time: 10/28/2016 Weight: 65.3 kg Height/Length: 62 in. BMI: 26.4 ALLERGIES: No Known Drug Allergy The patient's Home Medications are listed below: NONE. The source(s) of the original Home Medication information: patient The following Medications were given to the patient in the Emergency Department: Zofran [IVP] IVP 4 mg, administered: 10/28/2016 12:51:00 PM IV NS IV Fluids bolus 1000 mL over 1 hour(s), then 125 mL/hr, administered: 10/28/2016 12:51:00 PM The following Medications were prescribed to the patient: Zofran (orally disintegrating tablets) 4 mg: take 1 orally every 6 hours as needed for nausea. Dispense ten (10). No refill. -- Alex Malone MD Bentyl 20 mg tablets: take 1 orally every 6 hours as needed. Dispense thirty (30). No refills. Substitution is permissible. -- Alex Malone MD
== END 2016-10-28 14:50 | disposition home or self-care (01) ==
LOC: ED SRH 11:12
DX: R19.7 Diarrhea, unspecified (principal); K86.89 Other specified diseases of pancreas; N20.0 Calculus of kidney; I10 Essential (primary) hypertension
CPT/HCPCS: 90004; 90100; 90112; 90124; 90455; 90616; 91585; 92235; 92530; 92610; 92720; 92760; 92761; 92762; 92763; 92764; 92765; 92766; 92767; 93070; 93140; 95059; 99262